=== PATIENT | female | born 1985 | race Caucasian/White ===

== ENCOUNTER 2017-05-22 05:50 | Day surgery (SDC) | payer BC ==
[2017-05-22] VITALS (13 sets, daily range): BP systolic 92–139; BP diastolic 46–72
[~2017-05-22] VITALS: Ht 154.9 cm; Wt 47.6 kg
[2017-05-22] MEDS ORDERED: SPIRONOLACTONE100 MG ORAL (06:21)
--- NOTE | 2017-05-22 06:47 | Pre-op HX & Phy Repo 2 SIG ---
DATE OF ADMISSION: 05/22/2017 HISTORY OF PRESENT ILLNESS: The patient is a 32-year-old G0, who originally presented to me in October 2015 complaining of severe dysmenorrhea during the intercourse. She reports having unprotected intercourse for 12 years, but no . She is not actively seeking right now. On that day, the patient was evaluated. She was diagnosed with dysmenorrhea. She was offered control pills, which at that point she refused. She was also diagnosed with vaginismus and was offered dilators, which she accepted. The patient was next evaluated by me in October 2016. She continued to complain of severe and worsening dysmenorrhea and dyspareunia. Actually at that point, she was not interested in any longer because she did not have a partner. An ultrasound in October 2016 was consistent with an ovarian cyst. The patient at that point was offered again control pills, but she complained of increased vulvodynia with control pills. She was also offered Mirena. However, the patient would like to have a definitive diagnosis with laparoscopy and ablation of endometriosis. The patient was again seen on 05/18/2017. She complained about worsening pain. At this point, she still had severe pain with her menses, but she also had pain in the right lower quadrant most of the month especially after ovulation. She was counseled extensively and had a 3 cm left hemorrhagic cyst. So, basically the plan was to proceed with laparoscopy and ablation of endometriosis. PAST MEDICAL HISTORY: Kidney stones. PAST SURGICAL HISTORY: None. FAMILY HISTORY: Significant for diabetes in mother and grandparents. Ovarian cancer in maternal aunt. ASSESSMENT: 1. Dysmenorrhea. 2. Vaginismus. 3. Right lower quadrant pain. 4. Left-sided hemorrhagic cyst. 5. Probable endometriosis. PLAN: Plan is for diagnostic laparoscopy, left ovarian cystectomy, ablation of endometriosis, and hysteroscopy. Shalini Marvin M.D. DR: HUMBERTO JOB#: [id number] CC: KIA
[2017-05-22] MEDS ORDERED: fentaNYL 100 mcg/2 mL IV ONE (07:00)
[2017-05-22] MEDS ORDERED: CEFAZOLIN 500 MG ONE (07:00)
[2017-05-22] MEDS ORDERED: Nimbex 2mg/ml Inj 10ML IVP ONE (07:00)
[2017-05-22] MEDS ORDERED: Glycopyrrolate 0.2mg/ml 1ml Vial ONE (07:00)
[2017-05-22] MEDS ORDERED: Propofol 200mg/20ml IV ONE (07:00)
[2017-05-22] MEDS ORDERED: Succinylcholine 20mg/ml 10ml vial ONE (07:00)
[2017-05-22] MEDS ORDERED: Midazolam 2mg/2ml Inj ONE (07:00)
[2017-05-22] MEDS ORDERED: LR 1000ml ONE (07:00)
[2017-05-22] MEDS ORDERED: cefOXitin Sod 2 GM in D5W 110 ML IVPB ONE (07:00)
[2017-05-22] MEDS ORDERED: Ropivacaine 5mg/ml Vial 30ml INJ ONE (07:08)
[2017-05-22] MEDS ORDERED: ProvayBlue 5mg/ml 10ml amp INJ ONE (07:25)
[2017-05-22] MEDS ORDERED: LR 1000ml 1,000 ML IVLG SCH (08:33)
--- NOTE | 2017-05-22 08:38 | Anethesia Preoperative Eval ---
Anesthesia Pre-op PMH/ROS General Date of Evaluation: May 22, 2017 Time of Evaluation: 07:15 Anesthesiologist: MONET ASA Score: ASA 2 Mallampati Score Class I : Soft palate, uvula, fauces, pillars visible Class II: Soft palate, uvula, fauces visible Class III: Soft palate, base of uvula visible Class IV: Only hard plate visible Mallampati Classification: Class I Surgeon: SHABBIR Diagnosis: Ovarian Cyst Surgical Procedure: Hysteroscopy D & C Laparoscopy Anesthesia History: none Family History: no anesthesia problems Allergies: Coded Allergies: No Known Allergies (Unverified , 05/22/17) Medications: see eMAR Anesthesia Pre-op Phys. Exam Physician Exam Last Vital Signs Date Time Temp Pulse Resp B/P (MAP) Pulse Ox O2 Delivery O2 Flow Rate FiO2 05/22/17 06:21 97.2 80 18 97/56 98 Room Air Constitutional: NAD Neurologic: CN 2-12 intact Cardiovascular: RRR Respiratory: CTA Gastrointestinal: S/NT/ND Airway Exam Mallampati Score: Class II MO: full ROM: full Teeth: intact Anesthesia Pre-op A/P Labs Urine Test Test 05/22/17 06:00 Urine HCG, Qualitative Negative Risk Assessment & Plan Plan: GA Pre-Antibiotics Drug: Ancef Given Within 1 Hr of Incision: Yes Time Given: 08:00 Donnell Gudino M.D. May 22, 2017 08:38
--- NOTE | 2017-05-22 08:41 | Immediate Post-Op Evaluation ---
Immediate Post-Op Evalulation Immediate Post-Op Evalulation Procedure: Laparoscopy Date of Evaluation: May 22, 2017 Time of Evaluation: 10:00 IV Fluids: 1000 Blood Products: 0 Estimated Blood Loss: 20 Urinary Output: 100 Blood Pressure Systolic: 102 Blood Pressure Diastolic: 66 Pulse Rate: 78 Respiratory Rate: 18 O2 Sat by Pulse Oximetry: 99 Temperature (Fahrenheit): 98 Pain Score (1-10): 0 Nausea: No Vomiting: No Patient Status: awake, reacts, patent Hydration Status: adequate Drug: Ancef Given Within 1 Hr of Incision: Yes Time Given: 08:00 Donnell Gudino M.D. May 22, 2017 08:41
[2017-05-22] MEDS ORDERED: DiphenhydrAMINE 50mg/ml Inj IVP PRN (08:45)
[2017-05-22] MEDS ORDERED: Hydromorphone 0.5mg/0.5ml inj IVP PRN (08:45)
[2017-05-22] MEDS ORDERED: Morphine Sulfate 2mg/ml Inj IVP PRN (08:45)
[2017-05-22] MEDS ORDERED: Ketorolac 30mg Inj IV PRN (08:45)
--- NOTE | 2017-05-22 09:34 | Pre-Procedure Note/Attestation ---
Pre-Procedure Note/Attestation Complete Prior to Procedure Planned Procedure: left Procedure Narrative: Co2 laser pelviscopy, left ovarian cystectomy possible ablation of endometriosis Indications for Procedure Pre-Operative Diagnosis: left ovarian cyst, pain dysmenorhea Attestation I attest that I discussed the nature of the procedure; its benefits; risks and complications; and alternatives (and the risks and benefits of such alternatives ), prior to the procedure, with the patient (or the patient's legal technical sales representatives). I attest that, if there was a reasonable possibility of needing a blood transfusion, the patient (or the patient's legal technical sales representatives) was given the [facility] standardized written summary, pursuant to the Romeo Semaj Blood Safety Act ([place] Health and Safety Code # 1645, as amended). I attest that I re-evaluated the patient just prior to the surgery and that there has been no change in the patient's H&P, except as documented below: KAR SHEA May 22, 2017 09:34
--- NOTE | 2017-05-22 09:36 | Brief Operative Note ---
Immediate Post Operative Note Operative Note Pre-op Diagnosis: left ovarian cyst, pain dysmenorhea Procedure: Co2 laser pelviscopy, left ovarian cystectomy, excision of left pelvic nodule, adhesiolysis, hysteroscopy Post-op Diagnosis: left ovarian cyst// brown right pelvic nodule Surgeon: emely Literacy Consultant: raeann Anesthesia: general Specimen: yes Complications: none Fluids: 1300 Estimated Blood Loss: minimal Drains: none Implant(s) used?: No KAR SHEA May 22, 2017 09:36
[2017-05-22] MEDS ORDERED: Tylenol #3 tab (300mg/30mg) ORAL PRN (09:45)
[2017-05-22] MEDS: fentaNYL 100 mcg/2 mL IV PRN ×2 (10:03→10:14)
[2017-05-22] MEDS ORDERED: HYDROmorphone 1mg/ml Carpuject SUBQ PRN (11:30)
[2017-05-22] MEDS ORDERED: Norco 5mg/325mg tab ORAL PRN (11:30)
[2017-05-22] MEDS ORDERED: D5 1/2NS 1,000 ML IV SCH (12:00)
--- NOTE | 2017-05-22 16:40 | 48 Hour Post Anesthesia Eval ---
Post Anesthesia Evaluation Procedure: Laparoscopy Date of Evaluation: May 24, 2017 Time of Evaluation: 09:00 Blood Pressure Systolic: 139 0: 64 Pulse Rate: 88 Respiratory Rate: 16 Temperature (Fahrenheit): 98 O2 Sat by Pulse Oximetry: 99 Airway: patent Nausea: No Vomiting: No Pain Intensity: 0 Hydration Status: adequate Mental Status/LOC: patient returned to baseline Post-Anesthesia Complications: none Follow-up care needed: patient intructions given Donnell Gudino M.D. May 22, 2017 16:40
--- NOTE | 2017-05-22 18:48 | Operative Note - Dictated ---
DATE OF OPERATION: 05/22/2017 PRE-OPERATIVE DIAGNOSIS: Left ovarian cyst, pain, dysmenorrhea. POST-OPERATIVE DIAGNOSIS: Left ovarian cyst, brown right pelvic nodule. SURGERY PERFORMED: CO2 laser pelviscopy, left ovarian cystectomy, lysis of adhesions, removal of right pelvic nodule, hysteroscopy. SURGEON: Shalini Marvin M.D. TRAINING DEVELOPMENT MANAGER: Lenora Stroud M.D. ANESTHESIOLOGIST: Donnell Gudino M.D. PROCEDURE IN DETAIL: After ensuring informed consent, the patient was taken to the operating room, where general anesthesia was induced. The patient was sterilely prepped and draped. A weighted speculum was placed in the vagina. Cervix was dilated to an 8 Hegar dilator. Uterine cavity appeared within normal limits. Bilateral tubal ostia visualized. Next, attention was turned to the abdomen where a small incision was made at the umbilicus. After infiltration with local Veress needle was placed inside the peritoneal cavity and intraperitoneal placement was confirmed with low opening pressures. Next, a 10 mm trocar was placed inside the umbilicus and intraperitoneal placement was confirmed with the camera. Pelvis was explored. There was approximately 4 cm left ovarian cyst. The ovary was anterior to the uterus and adherent to the sigmoid colon. Next, two laterals 5 mm trocars were placed under direct visualization and infiltration with local, also CO2 laser was attached to the operative scope. Next, ovarian cystectomy was commenced namely capsule over the cyst was opened grasped and pulled away from the underlying ovarian stroma. Next ovary was cauterized and excellent hemostasis was assured using laser adhesions between the left ovary and sigmoid colon were lysed. Next pelvis was again explored and there was mobile 1 cm nodule that was dark appearing observed in the right pelvic area above the insertion of the right round pelvic ligament. It was lateral to the ureters and mobile. Peritoneum over the nodule was infiltrated with a dilute solution of Pitressin. Peritoneum was opened using laser. Nodule was grasped with pickups and both bluntly and sharply dissected off of the underlying fatty tissue. It was removed and sent to pathology. Excellent hemostasis was assured. The pelvis was copiously irrigated. The irrigant was suctioned off. All instruments and trocars were removed under direct visualization. Intraumbilical port was closed with 0 Vicryl, 4-0 Monocryl was used to close all the port site. Salas was removed. The uterine manipulator was removed. At the end of the procedure, all instrument and lap count was correct x2. Shalini Marvin M.D. DR: Rachel JOB#: [id number] CC: KIA
== END 2017-05-22 14:05 | disposition home or self-care (01) ==
LOC: SUR 05:50
DX: N83.202 Unspecified ovarian cyst, left side (principal); Z87.442 Personal history of urinary calculi; N94.6 Dysmenorrhea, unspecified; N94.2 Vaginismus
CPT/HCPCS: 58555; 58662; 81025; J0330; J0690; J1885; J2250; J2704; J2795; J3010; J7120; 94003; 94150

== ENCOUNTER 2017-07-23 09:00 | Outpatient (CLI) | payer BC ==
[~2017-07-23 09:00] MED LIST: SPIRONOLACTONE100 MG ORAL
--- NOTE | 2017-07-23 13:53 | Diagnostic Imaging Report ---
Clinical Indication: Right sided abdominal pain Technique: Patient ingested oral contrast. Precontrast spiral acquisitions obtained through the kidneys. IV administration nonionic contrast. Venous phase spiral acquisition obtained through the abdomen and pelvis. Multiplanar reconstructions were generated. Total dose length product 740 mGycm. CTDIvol(s) 9 and 11 mGy. Dose reduction achieved using automated exposure control Comparison: none Findings: On the precontrast images, no renal calculi are demonstrated. No evidence of ureteral calculi, hydronephrosis, or hydroureter demonstrated. The right kidney demonstrates a subcentimeter interpolar region low-attenuation lesion. No focal parenchymal abnormality seen on the left. The liver demonstrates multiple subcentimeter low-attenuation lesions which are too small to characterize. The gallbladder, bile ducts, pancreas, spleen, adrenals are unremarkable. No retroperitoneal or mesenteric mass or adenopathy. No pelvic mass or adenopathy. A foreign body, presumably a tampon, is present within the vagina. Very slight heterogeneity to the myometrial perfusion could indicate fibroid changes. The appendix is normal. Considerable retained stool is seen throughout the colon. The rectum is mildly distended with feces. No small bowel distention or small bowel wall thickening. No free or loculated intraperitoneal air or fluid is evident. Distal esophagus, stomach, duodenum are unremarkable. Contrast is present throughout the entirety of the small bowel, reaching as far distally as the distal descending colon The included lung bases are clear. The bones are unremarkable. Impression: No evidence of urinary stone disease or obstructive uropathy Incidental finding right renal subcentimeter low-attenuation lesion, too small to characterize, most likely benign simple cyst Considerable retained colonic stool, with mild rectal distention by stool. Could indicate constipation. Correlate with clinical findings Slightly heterogeneous uterine contrast enhancement, could indicate mild fibroid changes Foreign body, presumably a tampon, is present within the vagina Subcentimeter low attenuation hepatic lesions which are too small to characterize, most likely benign simple cysts or bile hamartomas. No further follow-up necessary The CT scanner at [facility] is accredited by the [employer] and the scans are performed using protocols designed to limit radiation exposure to as low as reasonably achievable to attain images of sufficient resolution adequate for diagnostic evaluation.
== END 2017-07-23 11:00 | disposition home or self-care (01) ==
LOC: CAT 09:00
DX: R10.9 Unspecified abdominal pain (principal); N28.9 Disorder of kidney and ureter, unspecified
CPT/HCPCS: 74177; Q9967